=== PATIENT | male | born 1955 | race Caucasian/White ===

== ENCOUNTER 2024-01-18 12:16 | Outpatient (CLI) | payer MEDICARE, OTHER ==
[2024-01-18] MEDS ORDERED: Magnevist 469MG/ML 20 ML VIAL ONE (13:00)
== END 2024-01-18 12:17 | disposition home or self-care (01) ==
LOC: CSHMRI 12:16
PROVIDERS: ATTEND Urology
DX: C61 Malignant neoplasm of prostate (principal); N40.2 Nodular prostate without lower urinary tract symptoms
CPT/HCPCS: 72197; 82565; A9579

== ENCOUNTER 2024-04-14 10:04 | Day surgery (SDC) | payer MEDICARE, OTHER ==
[2024-04-11 10:59] VITALS: BMI 41.8
[~2024-04-14 10:04] MED LIST: Iopamidol 300 61% 100 ML VIAL FS ONE
[2024-04-14] MEDS ORDERED: Adenosine 6 mg (2 mL) VIAL ONE (11:29)
[2024-04-14] MEDS ORDERED: Nitroglycerin 50 MG/250 ML BOT 250 ML ONE (11:29)
[2024-04-14] MEDS ORDERED: Lidocaine 1% (PF) 30 ML VIAL ONE (11:29)
[2024-04-14] MEDS ORDERED: Lidocaine 1% PF 5 ML VIAL ONE (11:29)
[2024-04-14] MEDS ORDERED: Verapamil 5 MG/2 ML VIAL ONE (11:29)
[2024-04-14] MEDS ORDERED: Heparin 10,000 UNITS/ 10 ML VIAL ONE (11:29)
[2024-04-14] MEDS ORDERED: Midazolam HCl 2 mg/2 ml Vial ONE (12:23)
[2024-04-14] MEDS ORDERED: fentaNYL 50 mcg/mL 1 mL Vial ONE (12:23)
== END 2024-04-14 16:25 | disposition home or self-care (01) ==
LOC: CSHSDC 10:04
PROVIDERS: ATTEND Specialist
PROC: 4A023N7 Measurement of Cardiac Sampling and Pressure, Left Heart, Percutaneous Approach (ICD-10-PCS; principal; 2024-04-14)
PROC: B205YZZ Plain Radiography of Left Heart using Other Contrast (ICD-10-PCS; 2024-04-14)
DX: I25.10 Atherosclerotic heart disease of native coronary artery without angina pectoris (principal); R94.39 Abnormal result of other cardiovascular function study; I11.0 Hypertensive heart disease with heart failure; I50.20 Unspecified systolic (congestive) heart failure; I48.19 Other persistent atrial fibrillation; E78.2 Mixed hyperlipidemia; E66.01 Morbid (severe) obesity due to excess calories; E11.9 Type 2 diabetes mellitus without complications; G47.30 Sleep apnea, unspecified; I26.99 Other pulmonary embolism without acute cor pulmonale; J44.9 Chronic obstructive pulmonary disease, unspecified; Z68.41 Body mass index [BMI] 40.0-44.9, adult; Z87.891 Personal history of nicotine dependence; Z88.0 Allergy status to penicillin; Z79.899 Other long term (current) drug therapy; Z86.718 Personal history of other venous thrombosis and embolism
CPT/HCPCS: 93458; C1769; C1887; C1894; J1644; J2250; J3010; 99152; 99153; J0153; J2001; Q9967